=== PATIENT | male | born 1995 | race African-American/Black ===

== ENCOUNTER 2022-03-21 13:57 | Emergency (ER) | payer MEDICAID ==
[~2022-03-21] VITALS: Ht 188 cm; Wt 75.0 kg
[2022-03-21] MEDS ORDERED: OxyCODONE HCL/ACETAMINOPHEN 10-325 MG TABLET PO ONE (14:30)
[2022-03-21 15:31] VITALS: BP 123/68
== END 2022-03-21 15:33 | disposition home or self-care (01) ==
LOC: EMS 13:57
DX: G89.29 Other chronic pain (principal); M54.2 Cervicalgia; Z85.22 Personal history of malignant neoplasm of nasal cavities, middle ear, and accessory sinuses; Z76.0 Encounter for issue of repeat prescription
CPT/HCPCS: 99283; 99284

== ENCOUNTER 2022-03-28 14:57 | Emergency (ER) | payer MEDICAID ==
[~2022-03-28] VITALS: Ht 190.5 cm; Wt 75.0 kg
[2022-03-28 15:11] VITALS: BP 106/84
[2022-03-28] MEDS: KETOROLAC TROMETHAMINE 60 MG/2 ML VIAL IM ONE ×2 (16:45→16:52)
== END 2022-03-28 17:12 | disposition home or self-care (01) ==
LOC: EMS 14:57
DX: G89.29 Other chronic pain (principal); M54.2 Cervicalgia; Z88.8 Allergy status to other drugs, medicaments and biological substances
CPT/HCPCS: 99283; J1885

== ENCOUNTER 2022-04-05 14:27 | Emergency (ER) | payer MEDICAID ==
[~2022-04-05] VITALS: Ht 188 cm; Wt 77.2 kg
[2022-04-05 14:48] VITALS: BP 110/71
== END 2022-04-05 15:23 | disposition left against medical advice (07) ==
LOC: EMS 14:27
DX: G89.29 Other chronic pain (principal); M54.2 Cervicalgia; R51.9 Headache, unspecified; F11.10 Opioid abuse, uncomplicated; Z85.89 Personal history of malignant neoplasm of other organs and systems; Z98.890 Other specified postprocedural states; Z88.4 Allergy status to anesthetic agent; Z88.8 Allergy status to other drugs, medicaments and biological substances
CPT/HCPCS: 99283

== ENCOUNTER 2023-02-15 09:49 | Emergency (ER) | payer MEDICAID ==
[~2023-02-15] VITALS: Ht 182.9 cm; Wt 77.3 kg
[2023-02-15 09:54] VITALS: TEMP 98.4
[2023-02-15] MEDS ORDERED: OxyCODONE HCL/ACETAMINOPHEN 5-325 MG TABLET PO ONE (10:00)
[2023-02-15 10:50] VITALS: BP 126/72; PULSE 71; RESP 16
== END 2023-02-15 11:17 | disposition home or self-care (01) ==
LOC: EMS 09:49
DX: G89.29 Other chronic pain (principal); M54.2 Cervicalgia; Z98.890 Other specified postprocedural states; Z88.8 Allergy status to other drugs, medicaments and biological substances
CPT/HCPCS: 99283

== ENCOUNTER 2023-02-18 17:42 | Emergency (ER) | payer MEDICAID ==
[~2023-02-18] VITALS: Ht 188 cm; Wt 77.3 kg
[2023-02-18 17:50] VITALS: BP 104/58; PULSE 71; RESP 18; TEMP 98.9
[2023-02-18] MEDS ORDERED: OXYC1TAB6 PO (17:50)
[2023-02-18] MEDS ORDERED: TRAM100T40 PO (17:50)
[2023-02-18] MEDS ORDERED: OxyCODONE HCL/ACETAMINOPHEN 10-325 MG TABLET PO ONE (23:15)
== END 2023-02-18 23:36 | disposition home or self-care (01) ==
LOC: EMS 17:44
DX: G89.29 Other chronic pain (principal); M54.2 Cervicalgia; Z85.9 Personal history of malignant neoplasm, unspecified; Z88.4 Allergy status to anesthetic agent; Z88.8 Allergy status to other drugs, medicaments and biological substances
CPT/HCPCS: 99283

== ENCOUNTER 2023-02-24 15:24 | Emergency (ER) | payer MEDICAID ==
[~2023-02-24] VITALS: Ht 188 cm; Wt 81.8 kg
[~2023-02-24 15:24] MED LIST: OXYC1TAB6 PO; TRAM100T40 PO
[2023-02-24 15:29] VITALS: TEMP 98.6
[2023-02-24 16:09] VITALS: BP 104/70; PULSE 88; RESP 18
[2023-02-24] MEDS ORDERED: NALO4SPR NASAL (16:27)
[2023-02-24] MEDS ORDERED: OxyCODONE HCL/ACETAMINOPHEN 10-325 MG TABLET PO ONE (16:30)
[2023-02-24] MEDS ORDERED: OXYC-38 PO (16:34)
[2023-02-25] MEDS ORDERED: OXYC-38 PO (15:22)
== END 2023-02-24 16:42 | disposition home or self-care (01) ==
LOC: EMS 15:24
DX: G89.29 Other chronic pain (principal); R51.9 Headache, unspecified; M54.2 Cervicalgia; Z98.890 Other specified postprocedural states
CPT/HCPCS: 99283

== ENCOUNTER 2023-02-27 22:53 | Emergency (ER) | payer MEDICAID ==
[~2023-02-27] VITALS: Ht 188 cm; Wt 77.3 kg
[~2023-02-27 22:53] MED LIST changes: +NALO4SPR NASAL; +OXYC-38 PO; -OXYC1TAB6 PO
[2023-02-27 23:00] VITALS: BP 122/81; PULSE 80; RESP 14; TEMP 98.7
[2023-02-27] MEDS ORDERED: OXYC10TA59 PO (23:02)
[2023-02-28] MEDS ORDERED: OxyCODONE HCL/ACETAMINOPHEN 10-325 MG TABLET PO ONE
[2023-02-28] MEDS ORDERED: OXYC-490 PO (00:04)
== END 2023-02-28 00:14 | disposition home or self-care (01) ==
LOC: EMS 22:53
DX: G89.3 Neoplasm related pain (acute) (chronic) (principal); M54.50 Low back pain, unspecified; M54.2 Cervicalgia; Z85.818 Personal history of malignant neoplasm of other sites of lip, oral cavity, and pharynx; Z98.890 Other specified postprocedural states; Z88.8 Allergy status to other drugs, medicaments and biological substances
CPT/HCPCS: 99283

== ENCOUNTER 2023-03-07 14:40 | Emergency (ER) | payer MEDICAID ==
[~2023-03-07] VITALS: Ht 188 cm; Wt 77.3 kg
[~2023-03-07 14:40] MED LIST changes: -OXYC-38 PO; +OXYC10TA59 PO; +TRAM-559 PO; -TRAM100T40 PO
[2023-03-07 14:42] VITALS: BP 120/59; PULSE 66; RESP 18; TEMP 98.7
[2023-03-07] MEDS ORDERED: OxyCODONE HCL/ACETAMINOPHEN 5-325 MG TABLET PO ONE (17:45)
== END 2023-03-07 18:36 | disposition home or self-care (01) ==
LOC: EMS 14:40
DX: G89.29 Other chronic pain (principal); M54.2 Cervicalgia; Z98.890 Other specified postprocedural states; Z88.6 Allergy status to analgesic agent; Z88.5 Allergy status to narcotic agent; Z88.8 Allergy status to other drugs, medicaments and biological substances; Z76.0 Encounter for issue of repeat prescription
CPT/HCPCS: 99283

== ENCOUNTER 2023-03-08 10:33 | Emergency (ER) | payer MEDICAID ==
[~2023-03-08] VITALS: Ht 182.9 cm; Wt 77.3 kg
[2023-03-08 10:40] VITALS: TEMP 98.2
[2023-03-08] MEDS ORDERED: OxyCODONE HCL/ACETAMINOPHEN 5-325 MG TABLET PO ONE (12:15)
[2023-03-08 12:32] VITALS: BP 124/66; PULSE 64; RESP 16
[2023-03-09] MEDS ORDERED: TRAM-559 PO (08:01)
== END 2023-03-08 12:46 | disposition home or self-care (01) ==
LOC: EMS 10:33
DX: G89.29 Other chronic pain (principal); R51.9 Headache, unspecified; Z98.890 Other specified postprocedural states; Z88.6 Allergy status to analgesic agent; Z88.5 Allergy status to narcotic agent; Z88.8 Allergy status to other drugs, medicaments and biological substances
CPT/HCPCS: 99283

== ENCOUNTER 2023-03-09 07:30 | Emergency (ER) | payer MEDICAID ==
[~2023-03-09] VITALS: Ht 188 cm; Wt 77.3 kg
[~2023-03-09 07:30] MED LIST changes: -TRAM-559 PO
[2023-03-09 07:36] VITALS: TEMP 98.3
[2023-03-09] MEDS ORDERED: OxyCODONE HCL 20 MG ER TABLET PO ONE (08:00)
[2023-03-09] MEDS ORDERED: TRAM-559 PO (08:01)
[2023-03-09 08:30] VITALS: BP 126/76; PULSE 65; RESP 16
== END 2023-03-09 08:44 | disposition home or self-care (01) ==
LOC: EMS 07:41
DX: G89.29 Other chronic pain (principal); F19.10 Other psychoactive substance abuse, uncomplicated; Z98.890 Other specified postprocedural states; Z88.6 Allergy status to analgesic agent; Z88.5 Allergy status to narcotic agent; Z88.8 Allergy status to other drugs, medicaments and biological substances
CPT/HCPCS: 99283

== ENCOUNTER 2023-03-13 13:54 | Emergency (ER) | payer MEDICAID ==
[~2023-03-13] VITALS: Ht 183.5 cm; Wt 77.3 kg
[~2023-03-13 13:54] MED LIST changes: +TRAM-559 PO
[2023-03-13 13:59] VITALS: TEMP 97.6
[2023-03-13] MEDS ORDERED: OxyCODONE HCL/ACETAMINOPHEN 10-325 MG TABLET PO ONE (14:45)
[2023-03-13 15:45] VITALS: BP 120/67; PULSE 79; RESP 19
== END 2023-03-13 16:31 | disposition home or self-care (01) ==
LOC: EMS 13:54
DX: M54.2 Cervicalgia (principal); G89.29 Other chronic pain; Z98.890 Other specified postprocedural states; Z88.6 Allergy status to analgesic agent; Z88.5 Allergy status to narcotic agent; Z88.8 Allergy status to other drugs, medicaments and biological substances
CPT/HCPCS: 99283

== ENCOUNTER 2023-03-14 15:22 | Emergency (ER) | payer MEDICAID ==
[~2023-03-14] VITALS: Ht 188 cm; Wt 70.5 kg
[2023-03-14 15:29] VITALS: TEMP 98
[2023-03-14] MEDS ORDERED: OxyCODONE HCL/ACETAMINOPHEN 10-325 MG TABLET PO ONE (15:45)
[2023-03-14 15:50] VITALS: BP 132/84; PULSE 79; RESP 16
== END 2023-03-14 16:21 | disposition home or self-care (01) ==
LOC: EMS 15:23
DX: G89.29 Other chronic pain (principal); M54.50 Low back pain, unspecified; M54.2 Cervicalgia; Z98.890 Other specified postprocedural states; Z88.6 Allergy status to analgesic agent; Z88.8 Allergy status to other drugs, medicaments and biological substances; Z88.5 Allergy status to narcotic agent
CPT/HCPCS: 99283

== ENCOUNTER 2023-03-15 11:42 | Emergency (ER) | payer MEDICAID ==
[~2023-03-15] VITALS: Ht 188 cm; Wt 70.0 kg
[2023-03-15 11:46] VITALS: BP 123/82; PULSE 80; RESP 16; TEMP 98
[2023-03-15] MEDS ORDERED: BACLOFEN 10 MG TABLET PO ONE (14:00)
== END 2023-03-15 14:25 | disposition home or self-care (01) ==
LOC: EMS 11:44
DX: G89.29 Other chronic pain (principal); M54.50 Low back pain, unspecified; F11.90 Opioid use, unspecified, uncomplicated; Z98.890 Other specified postprocedural states; Z88.6 Allergy status to analgesic agent; Z88.8 Allergy status to other drugs, medicaments and biological substances
CPT/HCPCS: 99281; Z7502

== ENCOUNTER 2023-03-16 02:42 | Emergency (ER) | payer MEDICAID ==
[~2023-03-16] VITALS: Ht 188 cm; Wt 70.0 kg
[2023-03-16] MEDS ORDERED: OxyCODONE HCL/ACETAMINOPHEN 5-325 MG TABLET PO ONE (03:30)
[2023-03-16 03:50] VITALS: BP 129/78; PULSE 84; RESP 18; TEMP 97.3
== END 2023-03-16 04:00 | disposition home or self-care (01) ==
LOC: EMS 02:42
DX: G89.29 Other chronic pain (principal); F11.90 Opioid use, unspecified, uncomplicated; Z98.890 Other specified postprocedural states; Z88.6 Allergy status to analgesic agent; Z88.5 Allergy status to narcotic agent; Z88.8 Allergy status to other drugs, medicaments and biological substances
CPT/HCPCS: 99283

== ENCOUNTER 2023-03-17 12:59 | Emergency (ER) | payer MEDICAID ==
[~2023-03-17] VITALS: Ht 177.8 cm; Wt 68.2 kg
[2023-03-17 13:05] VITALS: BP 129/82; PULSE 74; RESP 16; TEMP 98.5
[2023-03-17] MEDS ORDERED: BACLOFEN 10 MG TABLET PO ONE (13:15)
== END 2023-03-17 14:01 | disposition home or self-care (01) ==
LOC: EMS 13:14
DX: R51.9 Headache, unspecified (principal); Z76.5 Malingerer [conscious simulation]; F11.90 Opioid use, unspecified, uncomplicated; Z98.890 Other specified postprocedural states; Z88.6 Allergy status to analgesic agent; Z88.5 Allergy status to narcotic agent; Z88.8 Allergy status to other drugs, medicaments and biological substances
CPT/HCPCS: 99283

== ENCOUNTER 2023-03-20 02:21 | Emergency (ER) | payer MEDICAID ==
[~2023-03-20] VITALS: Ht 188 cm; Wt 77.0 kg
[2023-03-20 02:31] VITALS: BP 138/59; PULSE 84; RESP 16; TEMP 98.7
[2023-03-20] MEDS ORDERED: OxyCODONE HCL/ACETAMINOPHEN 10-325 MG TABLET PO ONE (02:45)
== END 2023-03-20 03:21 | disposition home or self-care (01) ==
LOC: EMS 02:21
DX: G89.29 Other chronic pain (principal); M54.50 Low back pain, unspecified; Z98.890 Other specified postprocedural states; Z88.6 Allergy status to analgesic agent; Z88.5 Allergy status to narcotic agent; Z88.8 Allergy status to other drugs, medicaments and biological substances
CPT/HCPCS: 99283

== ENCOUNTER 2023-03-20 12:58 | Emergency (ER) | payer MEDICAID ==
[~2023-03-20] VITALS: Ht 182.9 cm; Wt 81.8 kg
[2023-03-20 13:08] VITALS: TEMP 98.4
[2023-03-20 13:13] VITALS: BP 116/69; PULSE 66; RESP 16
== END 2023-03-20 17:35 | disposition left against medical advice (07) ==
LOC: EMS 12:58
DX: M54.50 Low back pain, unspecified (principal); Z76.5 Malingerer [conscious simulation]; Z88.5 Allergy status to narcotic agent; Z88.8 Allergy status to other drugs, medicaments and biological substances; Z79.899 Other long term (current) drug therapy
CPT/HCPCS: 99283; Z7502

== ENCOUNTER 2023-03-20 21:48 | Emergency (ER) | payer MEDICAID ==
[~2023-03-20] VITALS: Ht 188 cm; Wt 77.0 kg
[2023-03-21] MEDS ORDERED: OxyCODONE HCL 5 MG IR TABLET PO ONE (00:45)
[2023-03-21 01:02] VITALS: BP 131/63; PULSE 77; RESP 16; TEMP 98.3
== END 2023-03-21 01:08 | disposition home or self-care (01) ==
LOC: EMS 21:49
DX: G89.29 Other chronic pain (principal); M54.2 Cervicalgia; Z76.0 Encounter for issue of repeat prescription; Z98.890 Other specified postprocedural states; Z88.6 Allergy status to analgesic agent; Z88.5 Allergy status to narcotic agent; Z88.8 Allergy status to other drugs, medicaments and biological substances
CPT/HCPCS: 99283

== ENCOUNTER 2023-03-22 18:46 | Emergency (ER) | payer MEDICAID ==
[2023-03-21 01:02] VITALS: BP 131/63; PULSE 77; RESP 16
== END 2023-03-22 19:22 | disposition left against medical advice (07) ==
LOC: EMS 18:46
DX: Z53.21 Procedure and treatment not carried out due to patient leaving prior to being seen by health care provider (principal)

== ENCOUNTER 2023-03-23 19:25 | Emergency (ER) | payer MEDICAID | END 2023-03-23 21:06 | disposition left against medical advice (07) | LOC: EMS 19:26 | DX: Z53.21 Procedure and treatment not carried out due to patient leaving prior to being seen by health care provider (principal) ==

== ENCOUNTER 2023-03-23 20:57 | Emergency (ER) | payer MEDICAID ==
[~2023-03-23] VITALS: Ht 182.9 cm; Wt 82.0 kg
[2023-03-23 21:05] VITALS: BP 122/74; PULSE 75; RESP 16; TEMP 98.6
== END 2023-03-24 00:16 | disposition left against medical advice (07) ==
LOC: EMS 20:57
DX: R51.9 Headache, unspecified (principal); M54.9 Dorsalgia, unspecified; Z53.21 Procedure and treatment not carried out due to patient leaving prior to being seen by health care provider
CPT/HCPCS: 99281; Z7502

== ENCOUNTER 2023-03-24 11:06 | Emergency (ER) | payer MEDICAID ==
[~2023-03-24] VITALS: Ht 188 cm; Wt 77.3 kg
[2023-03-24 11:17] VITALS: TEMP 98.6
[2023-03-24 12:15] VITALS: BP 122/87; PULSE 85; RESP 18
[2023-03-24] MEDS ORDERED: OxyCODONE HCL/ACETAMINOPHEN 10-325 MG TABLET PO ONE (12:15)
== END 2023-03-24 12:30 | disposition home or self-care (01) ==
LOC: EMS 11:06
DX: G89.29 Other chronic pain (principal); M54.50 Low back pain, unspecified; M54.2 Cervicalgia; Z88.6 Allergy status to analgesic agent; Z88.5 Allergy status to narcotic agent; Z88.8 Allergy status to other drugs, medicaments and biological substances; Z98.890 Other specified postprocedural states
CPT/HCPCS: 99283

== ENCOUNTER 2023-03-25 07:13 | Emergency (ER) | payer MEDICAID ==
[~2023-03-25] VITALS: Ht 188 cm; Wt 77.3 kg
[2023-03-25 07:21] VITALS: TEMP 98.6
[2023-03-25] MEDS ORDERED: TraMADol HCL 50 MG TABLET PO ONE (07:45)
[2023-03-25 08:06] VITALS: BP 122/74; PULSE 70; RESP 14
== END 2023-03-25 08:09 | disposition home or self-care (01) ==
LOC: EMS 07:15
DX: M54.50 Low back pain, unspecified (principal); G89.29 Other chronic pain; Z98.890 Other specified postprocedural states; Z88.6 Allergy status to analgesic agent; Z88.5 Allergy status to narcotic agent; Z88.8 Allergy status to other drugs, medicaments and biological substances; Z76.0 Encounter for issue of repeat prescription
CPT/HCPCS: 99283

== ENCOUNTER 2023-03-26 15:05 | Emergency (ER) | payer MEDICAID ==
[~2023-03-26] VITALS: Ht 177.8 cm; Wt 100.0 kg
[2023-03-26 15:09] VITALS: BP 125/85; PULSE 62; RESP 18; TEMP 98
== END 2023-03-26 19:43 | disposition home or self-care (01) ==
LOC: EMS 15:06
DX: G89.29 Other chronic pain (principal); Z85.9 Personal history of malignant neoplasm, unspecified; Z88.4 Allergy status to anesthetic agent; Z88.5 Allergy status to narcotic agent; Z88.6 Allergy status to analgesic agent; Z88.8 Allergy status to other drugs, medicaments and biological substances
CPT/HCPCS: 99281; Z7502

== ENCOUNTER 2023-04-04 00:48 | Emergency (ER) | payer MEDICAID ==
[~2023-04-04] VITALS: Ht 188 cm; Wt 81.8 kg
[2023-04-04 00:51] VITALS: BP 107/78; PULSE 76; RESP 16; TEMP 97.8
== END 2023-04-04 03:06 | disposition home or self-care (01) ==
LOC: EMS 00:49
DX: G89.29 Other chronic pain (principal); M54.2 Cervicalgia; Z98.890 Other specified postprocedural states; Z76.0 Encounter for issue of repeat prescription
CPT/HCPCS: 99281; Z7502

== ENCOUNTER 2023-04-04 07:35 | Emergency (ER) | payer MEDICAID ==
[~2023-04-04] VITALS: Ht 182.9 cm; Wt 81.8 kg
[2023-04-04 07:40] VITALS: BP 127/82; PULSE 68; RESP 16; TEMP 98.6
== END 2023-04-04 11:46 | disposition home or self-care (01) ==
LOC: EMS 07:40
DX: R51.9 Headache, unspecified (principal); M54.2 Cervicalgia; G89.29 Other chronic pain; Z98.890 Other specified postprocedural states; Z88.6 Allergy status to analgesic agent; Z88.5 Allergy status to narcotic agent; Z88.8 Allergy status to other drugs, medicaments and biological substances
CPT/HCPCS: 99281; Z7502

== ENCOUNTER 2023-04-10 19:49 | Emergency (ER) | payer MEDICAID | END 2023-04-10 20:40 | disposition left against medical advice (07) | LOC: EMS 19:50 | DX: F11.10 Opioid abuse, uncomplicated (principal); Z85.9 Personal history of malignant neoplasm, unspecified; Z76.5 Malingerer [conscious simulation]; Z88.5 Allergy status to narcotic agent; Z88.6 Allergy status to analgesic agent; Z88.8 Allergy status to other drugs, medicaments and biological substances | CPT/HCPCS: 99283; Z7502 ==

== ENCOUNTER 2023-04-21 02:59 | Emergency (ER) | payer MEDICAID ==
[~2023-04-21] VITALS: Ht 188 cm; Wt 78.0 kg
[2023-04-21 03:00] VITALS: BP 124/82; PULSE 74; RESP 14; TEMP 98.5
== END 2023-04-21 03:25 | disposition home or self-care (01) ==
LOC: EMS 03:00
DX: G89.29 Other chronic pain (principal); M54.50 Low back pain, unspecified; Z98.890 Other specified postprocedural states; Z88.6 Allergy status to analgesic agent; Z88.5 Allergy status to narcotic agent; Z88.8 Allergy status to other drugs, medicaments and biological substances
CPT/HCPCS: 99283; Z7502

== ENCOUNTER 2023-04-23 02:17 | Emergency (ER) | payer MEDICAID ==
[~2023-04-23] VITALS: Ht 185.4 cm; Wt 78.0 kg
[2023-04-23 02:21] VITALS: BP 120/70; PULSE 80; RESP 18; TEMP 98.1
== END 2023-04-23 02:45 | disposition home or self-care (01) ==
LOC: EMS 02:18
DX: G89.29 Other chronic pain (principal); Z85.9 Personal history of malignant neoplasm, unspecified; Z88.5 Allergy status to narcotic agent; Z88.6 Allergy status to analgesic agent
CPT/HCPCS: 99283; Z7502

== ENCOUNTER 2023-06-21 23:50 | Emergency (ER) | payer MEDICAID ==
[~2023-06-21] VITALS: Ht 188 cm; Wt 72.4 kg
[2023-06-21 23:57] VITALS: BP 119/74; PULSE 85; RESP 17; TEMP 98.2
== END 2023-06-22 00:22 | disposition left against medical advice (07) ==
LOC: EMS 23:50
DX: G89.29 Other chronic pain (principal); M54.50 Low back pain, unspecified; Z53.21 Procedure and treatment not carried out due to patient leaving prior to being seen by health care provider
CPT/HCPCS: 99281; Z7502

== ENCOUNTER 2023-06-26 03:23 | Emergency (ER) | payer MEDICAID ==
[~2023-06-26] VITALS: Ht 175.3 cm; Wt 90.0 kg
[2023-06-26 03:31] VITALS: TEMP 98.5
[2023-06-26] MEDS ORDERED: HYDROCODONE/ACETAMINOPHEN 5-325 MG TABLET PO ONE (03:45)
[2023-06-26] MEDS ORDERED: TRAM-559 PO (05:22)
[2023-06-26 05:30] VITALS: BP 124/73; PULSE 72; RESP 17
== END 2023-06-26 06:30 | disposition home or self-care (01) ==
LOC: EMS 03:24
DX: M54.2 Cervicalgia (principal); R51.9 Headache, unspecified; G89.29 Other chronic pain; Z85.9 Personal history of malignant neoplasm, unspecified
CPT/HCPCS: 99283

== ENCOUNTER 2023-07-12 02:55 | Emergency (ER) | payer MEDICAID ==
[~2023-07-12] VITALS: Ht 170.2 cm; Wt 90.0 kg
[~2023-07-12 02:55] MED LIST changes: -NALO4SPR NASAL; -OXYC10TA59 PO
[2023-07-12 03:07] VITALS: TEMP 98
[2023-07-12 05:00] VITALS: BP 115/80; PULSE 74; RESP 16
[2023-07-12] MEDS ORDERED: TraMADol HCL 50 MG TABLET PO ONE (05:15)
== END 2023-07-12 05:32 | disposition home or self-care (01) ==
LOC: EMS 02:56
DX: G89.29 Other chronic pain (principal); M54.2 Cervicalgia; M54.9 Dorsalgia, unspecified; Z98.890 Other specified postprocedural states; Z88.6 Allergy status to analgesic agent; Z88.5 Allergy status to narcotic agent; Z88.8 Allergy status to other drugs, medicaments and biological substances
CPT/HCPCS: 99283

== ENCOUNTER 2023-08-02 21:17 | Emergency (ER) | payer MEDICAID ==
[~2023-08-02] VITALS: Ht 188 cm; Wt 78.6 kg
[2023-08-02 21:37] VITALS: BP 111/63; PULSE 57; RESP 16; TEMP 98.6
[2023-08-03] MEDS ORDERED: TRAM-559 PO (01:39)
[2023-08-03] MEDS ORDERED: OxyCODONE HCL 10 MG ER TABLET PO ONE (01:45)
== END 2023-08-03 03:05 | disposition home or self-care (01) ==
LOC: EMS 21:17
DX: G89.29 Other chronic pain (principal); M54.50 Low back pain, unspecified; Z85.9 Personal history of malignant neoplasm, unspecified; Z88.4 Allergy status to anesthetic agent; Z88.5 Allergy status to narcotic agent; Z88.6 Allergy status to analgesic agent
CPT/HCPCS: 99283

== ENCOUNTER 2023-08-27 04:36 | Emergency (ER) | payer MEDICAID ==
[~2023-08-27] VITALS: Ht 198.1 cm; Wt 59.0 kg
[2023-08-27 05:49] VITALS: BP 143/75; PULSE 78; RESP 18; TEMP 98.3
[2023-08-27] MEDS ORDERED: PERCT PO (07:12)
[2023-08-27] MEDS ORDERED: OxyCODONE HCL/ACETAMINOPHEN 5-325 MG TABLET PO ONE (07:15)
[2023-08-27] MEDS ORDERED: NALO4SPR NASAL (07:17)
== END 2023-08-27 07:32 | disposition home or self-care (01) ==
LOC: EMS 04:37
DX: M54.2 Cervicalgia (principal); Z85.9 Personal history of malignant neoplasm, unspecified; Z88.5 Allergy status to narcotic agent; Z88.6 Allergy status to analgesic agent
CPT/HCPCS: 99283

== ENCOUNTER 2023-08-29 02:41 | Emergency (ER) | payer MEDICAID ==
[~2023-08-29] VITALS: Ht 170.2 cm; Wt 75.0 kg
[~2023-08-29 02:41] MED LIST changes: +NALO4SPR NASAL; +PERCT PO
[2023-08-29 02:53] VITALS: BP 100/68; PULSE 68; RESP 17; TEMP 98.2
[2023-08-29] MEDS ORDERED: TraMADol HCL 50 MG TABLET PO ONE (03:15)
== END 2023-08-29 03:49 | disposition home or self-care (01) ==
LOC: EMS 02:42
DX: M54.2 Cervicalgia (principal); G89.29 Other chronic pain; Z76.0 Encounter for issue of repeat prescription; Z98.890 Other specified postprocedural states; Z88.6 Allergy status to analgesic agent; Z88.8 Allergy status to other drugs, medicaments and biological substances
CPT/HCPCS: 99283

== ENCOUNTER 2023-09-05 01:27 | Emergency (ER) | payer MEDICAID ==
[~2023-09-05] VITALS: Ht 175.3 cm; Wt 65.9 kg
[2023-09-05 01:31] VITALS: BP 140/82; PULSE 80; RESP 16; TEMP 98
== END 2023-09-05 06:56 | disposition home or self-care (01) ==
LOC: EMS 01:28
DX: G89.29 Other chronic pain (principal); R51.9 Headache, unspecified; M54.2 Cervicalgia; Z98.890 Other specified postprocedural states; Z76.5 Malingerer [conscious simulation]; Z88.6 Allergy status to analgesic agent; Z88.5 Allergy status to narcotic agent; Z88.8 Allergy status to other drugs, medicaments and biological substances
CPT/HCPCS: 99283

== ENCOUNTER 2023-09-15 23:36 | Emergency (ER) | payer MEDICAID ==
[~2023-09-15] VITALS: Ht 188 cm; Wt 68.2 kg
[2023-09-15 23:38] VITALS: TEMP 97.3
[2023-09-16] MEDS ORDERED: OxyCODONE HCL 5 MG IR TABLET PO ONE (00:15)
[2023-09-16 00:39] LABS: BASOPHILS % (AUTO) 0.4 % (0.0-2.0); EOSINOPHILS % (AUTO) 1.6 % (1.0-6.0); HEMATOCRIT 38.7 % (41-53); HEMOGLOBIN 12.7 g/dL (13.5-17.5); LYMPHOCYTES # (AUTO) 1.2 K/uL (1.0-4.8); MEAN CORPUSCULAR HEMOGLOBIN 29.7 pg (26.0-34.0); MEAN CORPUSCULAR HGB CONC 32.9 G/dL (31.0-37.0); MEAN CORPUSCULAR VOLUME 90 fL (80-100); MONOCYTES # (AUTO) 0.5 K/uL (0.1-1.0); MONOCYTES % (AUTO) 9.8 % (2.0-9.0); NEUTROPHILS # (AUTO) 3.2 K/uL (1.8-7.7); NEUTROPHILS % (AUTO) 64.2 % (40.0-70.0); PLATELET COUNT (AUTO) 256 K/uL (150-450); RED BLOOD CELL COUNT(AUTO) 4.29 MIL/uL (4.50-5.90); RED CELL DISTRIBUTION WIDTH 13.5 % (11.5-14.5); WHITE BLOOD COUNT (AUTO) 4.9 K/uL (4.5-11.0)
[2023-09-16 00:49] LABS: ANION GAP 5 mmol/L (8-16); CALCIUM, TOTAL 9.9 mg/dL (8.8-10.5); CARBON DIOXIDE 34 mmol/L (22-29); CHLORIDE 98 mmol/L (98-107); CREATININE 0.93 mg/dL (0.60-1.30); GLOMERULAR FILTR. RATE CALC > 60 mL/min (>60); GLUCOSE,RANDOM 77 mg/dL (70-110); POTASSIUM 4.3 mmol/L (3.5-5.1); SODIUM SERUM 137 mmol/L (136-145); UREA NITROGEN, BLOOD 11 mg/dL (7-18)
[2023-09-16 01:13] VITALS: BP 110/80; PULSE 80; RESP 16
== END 2023-09-16 01:20 | disposition home or self-care (01) ==
LOC: EMS 23:36
DX: G89.29 Other chronic pain (principal); R51.9 Headache, unspecified; Z98.890 Other specified postprocedural states; Z88.6 Allergy status to analgesic agent; Z88.8 Allergy status to other drugs, medicaments and biological substances
CPT/HCPCS: 80048; 85025; 99283

== ENCOUNTER 2023-09-18 21:36 | Emergency (ER) | payer MEDICAID ==
[~2023-09-18] VITALS: Ht 170.2 cm; Wt 65.0 kg
[2023-09-18 22:09] VITALS: BP 114/70; PULSE 88; RESP 18; TEMP 98.2
[2023-09-19] MEDS: TraMADol HCL 50 MG TABLET PO ONE (01:00)
== END 2023-09-19 05:37 | disposition home or self-care (01) ==
LOC: EMS 21:41
DX: G89.29 Other chronic pain (principal); M54.2 Cervicalgia; Z88.6 Allergy status to analgesic agent; Z88.5 Allergy status to narcotic agent; Z88.8 Allergy status to other drugs, medicaments and biological substances
CPT/HCPCS: 99283

== ENCOUNTER 2023-09-23 19:51 | Emergency (ER) | payer MEDICAID ==
[~2023-09-23] VITALS: Ht 182.9 cm; Wt 70.0 kg
[2023-09-23 20:09] VITALS: TEMP 98
[2023-09-23] MEDS: TraMADol HCL 50 MG TABLET PO ONE (23:34)
[2023-09-23 23:54] VITALS: BP 133/87; PULSE 83; RESP 18
== END 2023-09-23 23:55 | disposition home or self-care (01) ==
LOC: EMS 19:51
DX: G89.29 Other chronic pain (principal); F11.10 Opioid abuse, uncomplicated; M54.2 Cervicalgia; M54.9 Dorsalgia, unspecified; F17.210 Nicotine dependence, cigarettes, uncomplicated; Z98.890 Other specified postprocedural states; Z88.6 Allergy status to analgesic agent; Z88.5 Allergy status to narcotic agent; Z88.8 Allergy status to other drugs, medicaments and biological substances; Z76.0 Encounter for issue of repeat prescription
CPT/HCPCS: 96360; 99283; 99285

== ENCOUNTER 2023-09-29 09:30 | Emergency (ER) | payer MEDICAID ==
[~2023-09-29] VITALS: Ht 182.9 cm; Wt 70.0 kg
[2023-09-29 09:32] VITALS: BP 116/84; PULSE 98; RESP 18; TEMP 98.5
[2023-09-29] MEDS: OxyCODONE HCL/ACETAMINOPHEN 10-325 MG TABLET PO ONE (12:21)
== END 2023-09-29 12:24 | disposition home or self-care (01) ==
LOC: EMS 09:35
DX: G89.29 Other chronic pain (principal); F17.210 Nicotine dependence, cigarettes, uncomplicated; F11.90 Opioid use, unspecified, uncomplicated; Z85.9 Personal history of malignant neoplasm, unspecified; Z88.4 Allergy status to anesthetic agent; Z88.5 Allergy status to narcotic agent; Z88.6 Allergy status to analgesic agent
CPT/HCPCS: 99283

== ENCOUNTER 2023-09-30 23:38 | Emergency (ER) | payer MEDICAID ==
[~2023-09-30] VITALS: Ht 177.8 cm; Wt 82.0 kg
[2023-10-01 00:22] VITALS: BP 120/64; PULSE 88; RESP 17; TEMP 98.5
== END 2023-10-01 02:01 | disposition left against medical advice (07) ==
LOC: EMS 23:40
DX: F41.9 Anxiety disorder, unspecified (principal); Z53.21 Procedure and treatment not carried out due to patient leaving prior to being seen by health care provider
CPT/HCPCS: 99281; Z7502

== ENCOUNTER 2023-10-09 10:35 | Emergency (ER) | payer MEDICAID ==
[~2023-10-09] VITALS: Ht 188 cm; Wt 77.3 kg
[2023-10-09] MEDS ORDERED: NAPR-1025 PO (10:46)
[2023-10-09] MEDS ORDERED: [UNRECOGNIZED DRUG - OTHER] MISC (10:49)
[2023-10-09 11:43] VITALS: TEMP 98
[2023-10-09 12:20] VITALS: BP 120/83; PULSE 82; RESP 14
[2023-10-10] MEDS ORDERED: TRAM-559 PO (10:08)
== END 2023-10-09 14:20 | disposition home or self-care (01) ==
LOC: EMS 10:35
DX: G89.29 Other chronic pain (principal); F17.210 Nicotine dependence, cigarettes, uncomplicated; F11.90 Opioid use, unspecified, uncomplicated; Z85.9 Personal history of malignant neoplasm, unspecified; Z88.1 Allergy status to other antibiotic agents; Z88.5 Allergy status to narcotic agent; Z88.6 Allergy status to analgesic agent
CPT/HCPCS: 99281; Z7502

== ENCOUNTER 2023-10-10 09:58 | Emergency (ER) | payer MEDICAID ==
[~2023-10-10] VITALS: Ht 188 cm; Wt 80.0 kg
[~2023-10-10 09:58] MED LIST changes: -NALO4SPR NASAL; +NAPR-1025 PO; -PERCT PO; +[UNRECOGNIZED DRUG - OTHER] MISC
[2023-10-10 10:04] VITALS: BP 120/64; PULSE 64; RESP 16; TEMP 97.7
[2023-10-10] MEDS ORDERED: TRAM-559 PO (10:08)
[2023-10-10] MEDS: TraMADol HCL 50 MG TABLET PO ONE (10:19)
== END 2023-10-10 10:19 | disposition home or self-care (01) ==
LOC: EMS 10:06
DX: G44.209 Tension-type headache, unspecified, not intractable (principal); F17.210 Nicotine dependence, cigarettes, uncomplicated; Z98.890 Other specified postprocedural states; Z88.6 Allergy status to analgesic agent; Z88.8 Allergy status to other drugs, medicaments and biological substances; Z76.5 Malingerer [conscious simulation]
CPT/HCPCS: 99283

== ENCOUNTER 2023-10-14 23:37 | Emergency (ER) | payer MEDICAID ==
[~2023-10-14] VITALS: Ht 188 cm; Wt 77.3 kg
[2023-10-14] MEDS ORDERED: OXYC10TA59 PO (23:44)
[2023-10-15 02:43] VITALS: BP 130/75; PULSE 75; RESP 18; TEMP 98.3
== END 2023-10-15 03:18 | disposition home or self-care (01) ==
LOC: EMS 23:37
DX: M54.2 Cervicalgia (principal); G89.29 Other chronic pain; F17.210 Nicotine dependence, cigarettes, uncomplicated; Z98.890 Other specified postprocedural states; Z76.5 Malingerer [conscious simulation]; Z88.6 Allergy status to analgesic agent
CPT/HCPCS: 99283; Z7502

== ENCOUNTER 2023-10-29 03:01 | Emergency (ER) | payer MEDICAID ==
[~2023-10-29] VITALS: Ht 188 cm; Wt 71.0 kg
[~2023-10-29 03:01] MED LIST changes: -NAPR-1025 PO; +OXYC10TA59 PO; -TRAM-559 PO
[2023-10-29 03:07] VITALS: BP 107/62; PULSE 80; RESP 16; TEMP 98
[2023-10-29] MEDS: ACETAMINOPHEN 500 MG TABLET PO ONE (04:34)
== END 2023-10-29 04:36 | disposition home or self-care (01) ==
LOC: EMS 03:01
DX: G89.29 Other chronic pain (principal); F17.210 Nicotine dependence, cigarettes, uncomplicated; F11.90 Opioid use, unspecified, uncomplicated; Z85.9 Personal history of malignant neoplasm, unspecified; Z88.4 Allergy status to anesthetic agent; Z88.5 Allergy status to narcotic agent
CPT/HCPCS: 99283

== ENCOUNTER 2023-11-09 07:03 | Emergency (ER) | payer MEDICAID ==
[~2023-11-09] VITALS: Ht 188 cm; Wt 77.3 kg
[2023-11-09 07:37] VITALS: TEMP 98.2
[2023-11-09] MEDS ORDERED: METH-659 PO ×2 (09:12→09:40)
[2023-11-09] MEDS ORDERED: TRAM50TA5 PO (09:13)
[2023-11-09] MEDS: METHOCARBAMOL 500 MG TABLET PO ONE (09:29)
[2023-11-09] MEDS: OxyCODONE HCL/ACETAMINOPHEN 5-325 MG TABLET PO ONE (09:29)
[2023-11-09 09:30] VITALS: BP 134/72; PULSE 72; RESP 16
== END 2023-11-09 09:47 | disposition home or self-care (01) ==
LOC: EMS 07:04
DX: S16.1XXA Strain of muscle, fascia and tendon at neck level, initial encounter (principal); G89.29 Other chronic pain; F17.210 Nicotine dependence, cigarettes, uncomplicated; Z98.890 Other specified postprocedural states; X58.XXXA Exposure to other specified factors, initial encounter; Y93.89 Activity, other specified; Y92.89 Other specified places as the place of occurrence of the external cause; Y99.8 Other external cause status
CPT/HCPCS: 99283

== ENCOUNTER 2023-11-14 05:10 | Emergency (ER) | payer MEDICAID ==
[~2023-11-14] VITALS: Ht 180.3 cm; Wt 62.7 kg
[~2023-11-14 05:10] MED LIST changes: +METH-659 PO; +TRAM50TA5 PO
[2023-11-14 05:23] VITALS: TEMP 97.9
[2023-11-14 07:25] VITALS: BP 122/82; PULSE 80; RESP 16
== END 2023-11-14 07:26 | disposition home or self-care (01) ==
LOC: EMS 05:19
DX: R51.9 Headache, unspecified (principal); G89.29 Other chronic pain; F17.210 Nicotine dependence, cigarettes, uncomplicated; Z76.5 Malingerer [conscious simulation]; Z98.890 Other specified postprocedural states; Z88.6 Allergy status to analgesic agent; Z88.8 Allergy status to other drugs, medicaments and biological substances
CPT/HCPCS: 99283; Z7502

== ENCOUNTER 2023-11-18 04:13 | Emergency (ER) | payer MEDICAID ==
[~2023-11-18] VITALS: Ht 180.3 cm; Wt 62.7 kg
[2023-11-18 04:15] VITALS: BP 119/70; PULSE 94; RESP 15; TEMP 98
[2023-11-18] MEDS: TraMADol HCL 50 MG TABLET PO ONE (07:45)
[2023-11-18] MEDS ORDERED: TRAM50TA5 PO (07:51)
== END 2023-11-18 08:05 | disposition home or self-care (01) ==
LOC: EMS 04:14
DX: F19.10 Other psychoactive substance abuse, uncomplicated (principal); M54.2 Cervicalgia; F17.210 Nicotine dependence, cigarettes, uncomplicated; Z98.890 Other specified postprocedural states; Z88.6 Allergy status to analgesic agent
CPT/HCPCS: 99283

== ENCOUNTER 2023-12-03 02:19 | Emergency (ER) | payer MEDICAID ==
[~2023-12-03] VITALS: Ht 188 cm; Wt 90.9 kg
[2023-12-03 02:24] VITALS: BP 126/69; PULSE 68; RESP 15; TEMP 98
[2023-12-03] MEDS: TraMADol HCL 50 MG TABLET PO ONE ×2 (03:37→04:18)
== END 2023-12-03 04:29 | disposition home or self-care (01) ==
LOC: EMS 02:21
DX: G89.29 Other chronic pain (principal); F17.210 Nicotine dependence, cigarettes, uncomplicated; Z98.890 Other specified postprocedural states; Z88.6 Allergy status to analgesic agent; Z88.8 Allergy status to other drugs, medicaments and biological substances
CPT/HCPCS: 99283

== ENCOUNTER 2023-12-09 07:12 | Emergency (ER) | payer MEDICAID ==
[~2023-12-09] VITALS: Ht 188 cm; Wt 76.4 kg
[2023-12-09 07:37] VITALS: TEMP 98.4
[2023-12-09] MEDS: TraMADol HCL 50 MG TABLET PO ONE (09:39)
[2023-12-09 09:52] VITALS: BP 131/64; PULSE 61; RESP 16
== END 2023-12-09 10:48 | disposition home or self-care (01) ==
LOC: EMS 07:12
DX: M79.18 Myalgia, other site (principal); G89.29 Other chronic pain; F17.210 Nicotine dependence, cigarettes, uncomplicated; F11.90 Opioid use, unspecified, uncomplicated; Z85.9 Personal history of malignant neoplasm, unspecified; Z88.5 Allergy status to narcotic agent
CPT/HCPCS: 99283

== ENCOUNTER 2023-12-11 08:03 | Emergency (ER) | payer MEDICAID ==
[~2023-12-11] VITALS: Ht 188 cm; Wt 77.2 kg
[2023-12-11 08:07] VITALS: BP 122/52; PULSE 87; RESP 18; TEMP 97.3
== END 2023-12-11 08:34 | disposition home or self-care (01) ==
LOC: EMS 08:03
DX: G89.29 Other chronic pain (principal); M54.50 Low back pain, unspecified; F41.9 Anxiety disorder, unspecified; F17.210 Nicotine dependence, cigarettes, uncomplicated; F11.90 Opioid use, unspecified, uncomplicated; Z85.9 Personal history of malignant neoplasm, unspecified; Z88.5 Allergy status to narcotic agent; Z88.4 Allergy status to anesthetic agent; Z76.0 Encounter for issue of repeat prescription
CPT/HCPCS: 99281; Z7502

== ENCOUNTER 2023-12-16 21:20 | Emergency (ER) | payer MEDICAID ==
[2023-12-17] MEDS ORDERED: TRAM50TA5 PO (10:14)
== END 2023-12-16 23:21 | disposition left against medical advice (07) ==
LOC: EMS 21:21
DX: R51.9 Headache, unspecified (principal); Z53.21 Procedure and treatment not carried out due to patient leaving prior to being seen by health care provider

== ENCOUNTER 2023-12-17 07:22 | Emergency (ER) | payer MEDICAID ==
[~2023-12-17] VITALS: Ht 188 cm; Wt 80.9 kg
[2023-12-17 07:27] VITALS: TEMP 97.6
[2023-12-17 09:44] VITALS: BP 125/72; PULSE 80; RESP 16
[2023-12-17] MEDS: TraMADol HCL 50 MG TABLET PO ONE (10:09)
[2023-12-17] MEDS ORDERED: TRAM50TA5 PO (10:14)
== END 2023-12-17 10:47 | disposition home or self-care (01) ==
LOC: EMS 07:22
DX: M54.2 Cervicalgia (principal); G89.29 Other chronic pain; Z88.4 Allergy status to anesthetic agent; Z88.5 Allergy status to narcotic agent; Z88.6 Allergy status to analgesic agent; Z88.8 Allergy status to other drugs, medicaments and biological substances
CPT/HCPCS: 99283

== ENCOUNTER 2023-12-20 03:37 | Emergency (ER) | payer MEDICAID ==
[~2023-12-20] VITALS: Ht 188 cm; Wt 178.0 kg
[2023-12-20 03:41] VITALS: BP 100/56; PULSE 63; RESP 16; TEMP 98.4
== END 2023-12-20 07:00 | disposition home or self-care (01) ==
LOC: EMS 03:37
DX: R51.9 Headache, unspecified (principal); F17.210 Nicotine dependence, cigarettes, uncomplicated; G89.29 Other chronic pain; Z98.890 Other specified postprocedural states; Z88.6 Allergy status to analgesic agent; Z88.8 Allergy status to other drugs, medicaments and biological substances; Z76.5 Malingerer [conscious simulation]
CPT/HCPCS: 99283; Z7502

== ENCOUNTER 2023-12-21 09:59 | Emergency (ER) | payer MEDICAID ==
[~2023-12-21] VITALS: Ht 188 cm; Wt 90.0 kg
[2023-12-21 10:07] VITALS: BP 112/65; PULSE 69; RESP 16; TEMP 98.4
== END 2023-12-21 14:23 | disposition left against medical advice (07) ==
LOC: EMS 09:59
DX: M54.2 Cervicalgia (principal); R51.9 Headache, unspecified; Z53.21 Procedure and treatment not carried out due to patient leaving prior to being seen by health care provider

== ENCOUNTER 2023-12-24 03:18 | Emergency (ER) | payer MEDICAID ==
[~2023-12-24] VITALS: Ht 188 cm; Wt 81.8 kg
[2023-12-24 03:21] VITALS: TEMP 97.6
[2023-12-24 06:04] VITALS: BP 126/92; PULSE 65; RESP 16
[2023-12-24] MEDS: ACETAMINOPHEN 500 MG TABLET PO ONE (06:42)
== END 2023-12-24 06:51 | disposition home or self-care (01) ==
LOC: EMS 03:20
DX: G89.29 Other chronic pain (principal); F17.210 Nicotine dependence, cigarettes, uncomplicated; F11.90 Opioid use, unspecified, uncomplicated; Z85.9 Personal history of malignant neoplasm, unspecified; Z88.4 Allergy status to anesthetic agent; Z88.5 Allergy status to narcotic agent
CPT/HCPCS: 99283